=== PATIENT | female | born 1995 | race Two or more races ===

== ENCOUNTER 2021-11-06 13:05 | Emergency (ER) | payer BC ==
[~2021-11-06] VITALS: Ht 165.1 cm; Wt 82.0 kg
[2021-11-06] MEDS ORDERED: gabapentin (13:16)
[2021-11-06] MEDS ORDERED: MIDAZOLAM HCL 2 MG/2 ML VIAL IV ONE (13:45)
[2021-11-06 13:50] LABS: BASOPHILS % 0.2 % (0.0-2.0); EOSINOPHILS % 0.8 % (0.0-5.0); HEMATOCRIT. 45.2 % (36.0-48.0); HEMOGLOBIN. 15.2 g/dL (12.0-16.0); LYMPHOCYTES % 9.4 % (20.0-50.0); MEAN CORPUSCULAR HEMOGLOBIN 30.4 pg (28.0-32.0); MEAN CORPUSCULAR VOLUME 90.4 fL (81.0-99.0); MEAN PLATELET VOLUME 7.3 fl (7.4-10.4); MONOCYTES % 5.2 % (2.0-8.0); NEUTROPHILS % 84.4 % (40.0-76.0); PLATELET 389 x1000/uL (130-400); RED CELL DISTRIBUTION WIDTH 12.7 % (11.6-14.6)
[2021-11-06 13:58] LABS: CHLORIDE 107 mEq/L (98-107)
[2021-11-06 14:07] LABS: HCG SCREEN NEGATIVE
[2021-11-06 14:08] LABS: ETHANOL BLOOD < 10 mg/dL
[2021-11-06 15:30] VITALS: BP 133/80
== END 2021-11-06 16:05 | disposition home or self-care (01) ==
LOC: ER 14:13
DX: R56.9 Unspecified convulsions (principal); S00.03XA Contusion of scalp, initial encounter; F32.A Depression, unspecified; F12.10 Cannabis abuse, uncomplicated; W01.0XXA Fall on same level from slipping, tripping and stumbling without subsequent striking against object, initial encounter; Y93.89 Activity, other specified; Y92.520 Airport as the place of occurrence of the external cause
CPT/HCPCS: 36415; 70450; 80053; 80320; 83735; 84703; 85025; 93005; 96374; 99285; J2250; G0480